=== PATIENT | female | born 1950 | race Caucasian/White ===

== ENCOUNTER 2019-05-13 13:27 | Emergency (ER) | payer BC, MEDICARE ==
[~2019-05-13] VITALS: Ht 167.6 cm; Wt 61.4 kg
[~2019-05-13 13:27] MED LIST: ASPI-1265 PO; BUPR150T6 PO; MAGN64TA4 PO
[2019-05-13 15:53] LABS: BASOPHILS % (AUTO) 0.6 % (0-1); EOSINOPHILS # (AUTO) 0.1 X10'3 (0-0.9); EOSINOPHILS % (AUTO) 1.9 % (0-6); HEMATOCRIT 42.8 % (35.0-45.0); HEMOGLOBIN 14.7 g/dl (12.0-16.0); LYMPHOCYTES % (AUTO) 29.6 % (21-51); MEAN CORPUSCULAR HEMOGLOBIN 34.4 PG (27.0-31.0); MEAN CORPUSCULAR HGB CONC 34.3 g/dL (33.0-36.5); MEAN CORPUSCULAR VOLUME 100.4 FL (78-98); MEAN PLATELET VOLUME 7.4 FL (7.4-10.4); MONOCYTES # (AUTO) 0.6 X10'3 (0-0.9); NEUTROPHILS # (AUTO) 3.9 X10'3 (1.8-7.7); NEUTROPHILS % (AUTO) 58.9 % (42-75); PLATELET COUNT 329 X10'3 (140-440); RED BLOOD COUNT 4.27 X10'6 (4.20-5.60); RED CELL DISTRIBUTION WIDTH 14.1 % (11.5-14.5); WHITE BLOOD COUNT 6.6 X10'3 (4.5-11.0)
[2019-05-13 16:10] LABS: ALANINE AMINOTRANSFERASE 40 U/L (12-78); ALBUMIN 4.1 G/DL (3.4-5.0); ALBUMIN/GLOBULIN RATIO 1.1 (1.1-1.5); ALKALINE PHOSPHATASE 64 IU/L (46-116); ANION GAP 9 (8-16); ASPARTATE AMINO TRANSFERASE 22 U/L (10-37); BILIRUBIN,TOTAL 0.4 MG/DL (0.1-1.0); BLOOD UREA NITROGEN 7 MG/DL (7-18); BUN/CREATININE RATIO 8.8 (6.6-38.0); CALCIUM 9.3 MG/DL (8.5-10.1); CHLORIDE 99 MMOL/L (99-107); GLUCOSE 109 MG/DL (70-104); POTASSIUM 3.9 MMOL/L (3.5-5.1); SODIUM 136 MMOL/L (135-145); TOTAL CARBON DIOXIDE 28.5 MMOL/L (24-32); TOTAL PROTEIN 7.7 G/DL (6.4-8.2); eGFR 71 ML/MIN
[2019-05-13 16:11] LABS: MAGNESIUM 2.2 MG/DL (1.5-2.4)
[2019-05-13] MEDS ORDERED: LISI-600 PO (16:22)
[2019-05-13 16:42] VITALS: BP 167/83
== END 2019-05-13 18:06 | disposition home or self-care (01) ==
LOC: ER 13:28
DX: I10 Essential (primary) hypertension (principal); R51 Headache; F10.99 Alcohol use, unspecified with unspecified alcohol-induced disorder; Z88.2 Allergy status to sulfonamides; Z79.82 Long term (current) use of aspirin; Z79.899 Other long term (current) drug therapy; Y90.9 Presence of alcohol in blood, level not specified
CPT/HCPCS: 36415; 71045; 80053; 83735; 83880; 84484; 85025; 93005; 99284

== ENCOUNTER 2019-05-19 03:23 | Outpatient (CLI) | payer SELFPAY ==
[~2019-05-19 03:23] MED LIST changes: +LISI-600 PO
[2019-05-19 08:23] LABS: HEMOGLOBIN A1C 5.3 % (4.5-6.2)
[2019-05-19 08:33] LABS: CHOL/HDL RATIO 2.44 (0.00-4.99)
== END 2019-05-19 23:59 | disposition home or self-care (01) ==
LOC: HW HEART 03:23
DX: Z13.6 Encounter for screening for cardiovascular disorders (principal)
CPT/HCPCS: 36415

== ENCOUNTER 2019-09-22 15:08 | Outpatient (CLI) | payer BC ==
[~2019-09-22 15:08] MED LIST changes: -LISI-600 PO
== END 2019-09-22 23:59 | disposition home or self-care (01) ==
LOC: RAD 15:08
PROVIDERS: ATTEND Otolaryngology
DX: K21.0 Gastro-esophageal reflux disease with esophagitis (principal)
CPT/HCPCS: 74220; 74230

== ENCOUNTER 2021-12-15 19:18 | Inpatient (IN) | payer MEDICARE ==
[~2021-12-15] VITALS: Ht 167.6 cm; Wt 64.3 kg
[~2021-12-15 19:18] MED LIST changes: +BUPR150T22 PO; -BUPR150T6 PO
[2021-12-15] MEDS ORDERED: ATOR10TA PO (20:05)
[2021-12-15] MEDS ORDERED: DULO20CA50 PO (20:05)
[2021-12-15] MEDS ORDERED: LOSA1TAB36 PO (20:05)
[2021-12-15 20:08] LABS: BASOPHILS % (AUTO) 0.4 % (0-1); EOSINOPHILS % (AUTO) 0.1 % (0-6); HEMATOCRIT 45.1 % (35.0-45.0); HEMOGLOBIN 15.9 g/dl (12.0-16.0); LYMPHOCYTES % (AUTO) 24.4 % (21-51); MEAN CORPUSCULAR HEMOGLOBIN 32.8 PG (27.0-31.0); MEAN CORPUSCULAR HGB CONC 35.2 g/dL (33.0-36.5); MEAN CORPUSCULAR VOLUME 93.2 FL (78-98); MEAN PLATELET VOLUME 7.5 FL (7.4-10.4); MONOCYTES # (AUTO) 0.5 X10'3 (0-0.9); MONOCYTES % (AUTO) 11.3 % (2-12); NEUTROPHILS # (AUTO) 2.7 X10'3 (1.8-7.7); NEUTROPHILS % (AUTO) 63.8 % (42-75); PLATELET COUNT 239 X10'3 (140-440); RED BLOOD COUNT 4.84 X10'6 (4.20-5.60); RED CELL DISTRIBUTION WIDTH 12.9 % (11.5-14.5); WHITE BLOOD COUNT 4.2 X10'3 (4.5-11.0)
[2021-12-15] MEDS ORDERED: CHOL20004 PO (20:10)
[2021-12-15] MEDS ORDERED: VITC500T PO (20:10)
[2021-12-15 20:51] LABS: ALANINE AMINOTRANSFERASE 49 U/L (12-78); ALBUMIN 3.4 G/DL (3.4-5.0); ALKALINE PHOSPHATASE 73 IU/L (46-116); ANION GAP 9 (8-16); ASPARTATE AMINO TRANSFERASE 39 U/L (10-37); BILIRUBIN,TOTAL 0.3 MG/DL (0.1-1.0); BLOOD UREA NITROGEN 12 MG/DL (7-18); BUN/CREATININE RATIO 17.1 (6.6-38.0); CALCIUM 8.8 MG/DL (8.5-10.1); CHLORIDE 84 MMOL/L (99-107); GLUCOSE 151 MG/DL (70-104); POTASSIUM 3.8 MMOL/L (3.5-5.1); TOTAL PROTEIN 6.9 G/DL (6.4-8.2); eGFR 82 ML/MIN
[2021-12-15 20:53] LABS: SODIUM 120 MMOL/L (135-145)
[2021-12-15 20:54] LABS: MAGNESIUM 1.9 MG/DL (1.5-2.4)
[2021-12-15] MEDS ORDERED: ondansetron/PF 4mg/2ml inj IV PRN (22:45)
[2021-12-15] MEDS ORDERED: mag hydrox/Alum hydrox/simeth 30ml oral suspension PO PRN (22:45)
[2021-12-15] MEDS ORDERED: POTASSIUM BICARB 20meq eff tab 20 MEQ TABLET.EFF PO PRN (22:45)
[2021-12-15] MEDS ORDERED: acetaminophen 325mg tablet PO PRN (22:45)
[2021-12-15] MEDS ORDERED: magnesium Cl slow-release 64mg tablet PO PRN (22:45)
[2021-12-15] MEDS: normal saline 1000ml 1,000 ML IV SCH (23:11)
[2021-12-15] MEDS: HYDROcodone/acetaminophen 5mg/325mg tablet PO PRN (23:12)
[2021-12-15 23:21] LABS: CLARITY,URINE CLEAR (Clear); COLOR,URINE YELLOW (Yellow); GLUCOSE, URINE NEGATIVE (Neg); KETONES,URINE 15 mg/dl (Neg); LEUKOCYTE ESTERASE ,URINE NEGATIVE (Neg); NITRITES, URINE NEGATIVE (Neg); OCCULT BLOOD,URINE NEGATIVE (Neg); PH,URINE 6.5 (4.8-8.0); PROTEIN,URINE NEGATIVE (Neg); UROBILINOGEN,URINE 0.2 E.U/dL (0.2-1.0)
[2021-12-15 23:27] LABS: UA COLLECTION TYPE STRAIGHT CATH
[2021-12-15 23:30] LABS: POTASSIUM 4.2 MMOL/L (3.5-5.1)
[2021-12-16] MEDS: HYDROcodone/acetaminophen 5mg/325mg tablet PO PRN ×3 (00:39→17:30)
[2021-12-16 03:45] LABS: BASOPHILS % (AUTO) 0.6 % (0-1); EOSINOPHILS % (AUTO) 0.2 % (0-6); HEMATOCRIT 40.7 % (35.0-45.0); HEMOGLOBIN 14.3 g/dl (12.0-16.0); LYMPHOCYTES % (AUTO) 24.5 % (21-51); MEAN CORPUSCULAR HEMOGLOBIN 32.4 PG (27.0-31.0); MEAN CORPUSCULAR HGB CONC 35.1 g/dL (33.0-36.5); MEAN CORPUSCULAR VOLUME 92.3 FL (78-98); MEAN PLATELET VOLUME 7.9 FL (7.4-10.4); MONOCYTES # (AUTO) 0.5 X10'3 (0-0.9); MONOCYTES % (AUTO) 12.6 % (2-12); NEUTROPHILS # (AUTO) 2.6 X10'3 (1.8-7.7); NEUTROPHILS % (AUTO) 62.1 % (42-75); PLATELET COUNT 207 X10'3 (140-440); RED BLOOD COUNT 4.41 X10'6 (4.20-5.60); WHITE BLOOD COUNT 4.2 X10'3 (4.5-11.0)
[2021-12-16 03:48] LABS: ALANINE AMINOTRANSFERASE 42 U/L (12-78); ALBUMIN 2.9 G/DL (3.4-5.0); ALKALINE PHOSPHATASE 65 IU/L (46-116); ANION GAP 6 (8-16); ASPARTATE AMINO TRANSFERASE 40 U/L (10-37); BILIRUBIN,TOTAL 0.3 MG/DL (0.1-1.0); BLOOD UREA NITROGEN 10 MG/DL (7-18); BUN/CREATININE RATIO 18.9 (6.6-38.0); CALCIUM 7.9 MG/DL (8.5-10.1); CHLORIDE 88 MMOL/L (99-107); CREATININE 0.53 MG/DL (0.40-0.90); GLUCOSE 118 MG/DL (70-104); MAGNESIUM 1.6 MG/DL (1.5-2.4); POTASSIUM 3.4 MMOL/L (3.5-5.1); TOTAL CARBON DIOXIDE 26.4 MMOL/L (24-32); TOTAL PROTEIN 5.9 G/DL (6.4-8.2); eGFR > 90 ML/MIN
[2021-12-16 03:50] LABS: SODIUM 120 MMOL/L (135-145)
[2021-12-16] MEDS: POTASSIUM BICARB 20meq eff tab 20 MEQ TABLET.EFF PO PRN ×3 (03:59→19:30)
--- NOTE | 2021-12-16 05:51 | NUR ---
CALLED DR. CHANG ABOUT LAB VALUE OF 120 FOR SODIUM.
[2021-12-16] MEDS ORDERED: morphine 2 MG/ML inj. syringe IV ONE (05:55)
--- NOTE | 2021-12-16 07:05 | NUR ---
Pt sleeping, no apparent distress or needs at this time.
[2021-12-16] MEDS: duloxetine 20mg capsule.DR PO SCH ×3 (08:00→19:51)
[2021-12-16] MEDS: losartan 50mg tablet PO SCH (08:00)
--- NOTE | 2021-12-16 08:45 | NUR ---
Assisted pt to bedside commode. Pad had a large UA. Pt was steady on her feet and only "slightly dizzy." Able to transfer between commode and bed by himself. Requested more Morphine for back pain. Will call physician to request meds.
[2021-12-16] MEDS: docusate sod 100mg capsule PO SCH ×2 (08:48→20:00)
[2021-12-16] MEDS: atorvastatin 10mg tablet PO SCH (08:56)
[2021-12-16] MEDS: cholecalciferol (vitamin D3) 1,000 unit (25mcg) tablet PO SCH (08:56)
[2021-12-16] MEDS: ascorbic acid 500mg tablet PO SCH ×2 (08:56→19:30)
[2021-12-16] MEDS: normal saline 1000ml 1,000 ML IV SCH ×3 (09:05→21:16)
--- NOTE | 2021-12-16 10:00 | NUR ---
Patient in room ED 5. I have received report from ROWENA Benitez and had the opportunity to ask questions and assume patient care.
[2021-12-16 10:30] VITALS: BP 122/71
[2021-12-16] MEDS: morphine 2 MG/ML inj. syringe IV PRN ×2 (11:04→14:51)
[2021-12-16] MEDS: cyclobenzaprine 10mg tablet PO PRN (14:50)
[2021-12-16 15:00] VITALS: BP 116/56
[2021-12-16] MEDS ORDERED: magnesium hydroxide 30ml (MOM) UD suspension PO PRN (16:25)
[2021-12-16 18:00] VITALS: BP 113/65
--- NOTE | 2021-12-16 18:20 | NUR ---
Problems reprioritized. Patient report given, questions answered & plan of care reviewed with ROWENA Mcmanus.
--- NOTE | 2021-12-16 18:34 | NUR ---
Problems reprioritized. Patient report given, questions answered & plan of care reviewed with ROWENA Jarrett.
--- NOTE | 2021-12-16 18:35 | NUR ---
Patient in room PCU 3008. I have received report from ROWENA Jarrett and had the opportunity to ask questions and assume patient care.
[2021-12-16 21:24] VITALS: BP 109/61
[2021-12-17 02:15] VITALS: BP 122/69
--- NOTE | 2021-12-17 06:25 | NUR ---
Patient in room PCU 3008. I have received report from Mairetta GUMAAN and had the opportunity to ask questions and assume patient care.
--- NOTE | 2021-12-17 06:36 | NUR ---
Problems reprioritized. Patient report given, questions answered & plan of care reviewed with ROWENA Schwartz.
[2021-12-17 07:00] VITALS: BP 147/87
[2021-12-17] MEDS: cyclobenzaprine 10mg tablet PO PRN (07:26)
[2021-12-17] MEDS: cholecalciferol (vitamin D3) 1,000 unit (25mcg) tablet PO SCH (07:26)
[2021-12-17] MEDS: docusate sod 100mg capsule PO SCH (07:26)
[2021-12-17 07:27] VITALS: BP_SYST 147
[2021-12-17] MEDS: ascorbic acid 500mg tablet PO SCH (07:27)
[2021-12-17] MEDS: losartan 50mg tablet PO SCH (07:27)
[2021-12-17] MEDS: atorvastatin 10mg tablet PO SCH (07:27)
[2021-12-17] MEDS: duloxetine 20mg capsule.DR PO SCH (07:27)
[2021-12-17] MEDS: morphine 2 MG/ML inj. syringe IV PRN (07:28)
[2021-12-17 08:40] LABS: BASOPHILS % (AUTO) 0.5 % (0-1); EOSINOPHILS % (AUTO) 0.6 % (0-6); HEMATOCRIT 40.4 % (35.0-45.0); HEMOGLOBIN 13.8 g/dl (12.0-16.0); LYMPHOCYTES # (AUTO) 0.8 X10'3 (1.1-4.8); LYMPHOCYTES % (AUTO) 24.3 % (21-51); MEAN CORPUSCULAR HEMOGLOBIN 32.3 PG (27.0-31.0); MEAN CORPUSCULAR HGB CONC 34.2 g/dL (33.0-36.5); MEAN CORPUSCULAR VOLUME 94.6 FL (78-98); MEAN PLATELET VOLUME 7.7 FL (7.4-10.4); MONOCYTES # (AUTO) 0.3 X10'3 (0-0.9); MONOCYTES % (AUTO) 10.1 % (2-12); NEUTROPHILS # (AUTO) 2.1 X10'3 (1.8-7.7); NEUTROPHILS % (AUTO) 64.5 % (42-75); PLATELET COUNT 213 X10'3 (140-440); RED BLOOD COUNT 4.27 X10'6 (4.20-5.60); RED CELL DISTRIBUTION WIDTH 13.2 % (11.5-14.5); WHITE BLOOD COUNT 3.3 X10'3 (4.5-11.0)
[2021-12-17 08:51] LABS: ALANINE AMINOTRANSFERASE 37 U/L (12-78); ALBUMIN 2.7 G/DL (3.4-5.0); ALBUMIN/GLOBULIN RATIO 0.9 (1.1-1.5); ALKALINE PHOSPHATASE 59 IU/L (46-116); ANION GAP 6 (8-16); ASPARTATE AMINO TRANSFERASE 25 U/L (10-37); BILIRUBIN,TOTAL 0.3 MG/DL (0.1-1.0); BLOOD UREA NITROGEN 7 MG/DL (7-18); BUN/CREATININE RATIO 13.7 (6.6-38.0); CALCIUM 7.4 MG/DL (8.5-10.1); CHLORIDE 97 MMOL/L (99-107); CREATININE 0.51 MG/DL (0.40-0.90); GLUCOSE 102 MG/DL (70-104); MAGNESIUM 1.9 MG/DL (1.5-2.4); SODIUM 130 MMOL/L (135-145); TOTAL CARBON DIOXIDE 27.3 MMOL/L (24-32); TOTAL PROTEIN 5.6 G/DL (6.4-8.2); eGFR > 90 ML/MIN
[2021-12-17] MEDS ORDERED: LOSA50TA64 PO (10:06)
[2021-12-17] MEDS ORDERED: CYCL-1 PO (10:06)
--- NOTE | 2021-12-17 11:42 | NUR ---
patient painful in her hip this am. medicated ,with relief see EMAR. seen by DR Brendon reynolds for DC. ALL DC instructions given to patient and spouse. Patient given IS and flutter valve . PIV removed intact. patient DC home via private car to home with [id number].
== END 2021-12-17 11:25 | disposition home or self-care (01) | DRG 194 ==
LOC: ER 19:19 → ED HOLD 22:47 → PCU 3S 12-16 10:25
PROVIDERS: ADMIT Internal Medicine; ATTEND Family Medicine
DX: J10.1 Influenza due to other identified influenza virus with other respiratory manifestations (principal); E87.1 Hypo-osmolality and hyponatremia; I10 Essential (primary) hypertension; M81.0 Age-related osteoporosis without current pathological fracture; E78.5 Hyperlipidemia, unspecified; Z79.899 Other long term (current) drug therapy; Z88.2 Allergy status to sulfonamides
CPT/HCPCS: 36415; 71045; 80053; 81003; 83735; 83880; 83930; 83935; 84132; 84145; 84484; 85025; 87081; 87502; 87503; 87635; 93005; 99285; C9803; G0378; J2270; J7030

== ENCOUNTER 2023-10-24 08:36 | Emergency (ER) | payer MEDICARE ==
[~2023-10-24] VITALS: Ht 162.6 cm; Wt 66.5 kg
[~2023-10-24 08:36] MED LIST changes: -ASPI-1265 PO; +ATOR10TA PO; -BUPR150T22 PO; +CHOL20004 PO; +CYCL-1 PO; +DULO20CA50 PO; +LOSA50TA64 PO; -MAGN64TA4 PO; +VITC500T PO
[2023-10-24 08:38] VITALS: BP 156/75; PULSE 71; RESP 16; TEMP 98.6; O2SAT 98
== END 2023-10-24 12:32 | disposition home or self-care (01) ==
LOC: ER 08:37
DX: S82.832A Other fracture of upper and lower end of left fibula, initial encounter for closed fracture (principal); I10 Essential (primary) hypertension; Z88.2 Allergy status to sulfonamides; Z79.899 Other long term (current) drug therapy; W19.XXXA Unspecified fall, initial encounter; Y93.89 Activity, other specified; Y92.89 Other specified places as the place of occurrence of the external cause; Y99.8 Other external cause status
CPT/HCPCS: 73610; 99283